=== PATIENT | female | born 1965 | race Caucasian/White ===

== ENCOUNTER → 2016-09-08 | Outpatient (CLI) | payer BC | LOC: FIMAGING 15:43 | DX: Z12.31 Encounter for screening mammogram for malignant neoplasm of breast (principal) | CPT/HCPCS: G0202 ==

== ENCOUNTER → 2017-10-11 | Outpatient (CLI) | payer BC | LOC: FIMAGING 16:12 | PROVIDERS: ATTEND Family Medicine | DX: Z12.31 Encounter for screening mammogram for malignant neoplasm of breast (principal) ==

== ENCOUNTER → 2018-11-17 | Outpatient (CLI) | payer BC | LOC: FIMAGING 07:49 | PROVIDERS: ATTEND Family Medicine | DX: Z12.31 Encounter for screening mammogram for malignant neoplasm of breast (principal) ==

== ENCOUNTER → 2018-12-13 | Outpatient (CLI) | payer BC | LOC: FIMAGING 10:08 ==